=== PATIENT | male | born 1965 | race African-American/Black ===

== ENCOUNTER 2020-06-12 14:59 | Emergency (ER) | payer OTHER ==
[2020-06-12 15:33] VITALS: BP 165/97; PULSE 104; TEMP 98.8; BMI 41.0
== END 2020-06-12 15:56 | disposition home or self-care (01) ==
LOC: FER 14:59
DX: S09.90XA Unspecified injury of head, initial encounter (principal)
CPT/HCPCS: 99283-25

== ENCOUNTER 2022-05-29 09:25 | Emergency (ER) | payer BC, OTHER ==
[2022-05-29 09:30] VITALS: RESP 18; TEMP 98.7; BMI 41.0
[2022-05-29] MEDS ORDERED: ACETAMINOPHEN 500 MG TABLET (FP) PO ONE (09:50)
[2022-05-29] MEDS ORDERED: ACETAMINOPHEN 500 MG TABLET (FP) ONE (10:06)
[2022-05-29] MEDS ORDERED: IBUPROFEN 600 MG TABLET (FP) PO ONE ×2 (10:26→10:29)
[2022-05-29 11:24] VITALS: BP 150/89; PULSE 77
== END 2022-05-29 11:00 | disposition home or self-care (01) ==
LOC: FER 09:25
DX: G56.01 Carpal tunnel syndrome, right upper limb (principal); I10 Essential (primary) hypertension
CPT/HCPCS: 70450-TC; 93005; 99284-25

== ENCOUNTER 2023-10-19 09:19 | Emergency (ER) | payer BC, OTHER ==
[2023-10-19 09:24] VITALS: BP 119/82; PULSE 61; RESP 18; TEMP 97.5; BMI 38.0
[2023-10-19] MEDS: SODIUM CHLORIDE 0.9% 500 ML INFUS.BAG IV ONE (10:00)
[2023-10-19] MEDS: ONDANSETRON 4 MG/2 ML VIAL IVPUSH ONE (10:00)
[2023-10-19] MEDS ORDERED: ONDANSETRON 4 MG/2 ML VIAL ONE (10:00)
[2023-10-19 10:15] LABS: HEMATOCRIT 45.7 % (35.4-49); HEMOGLOBIN 14.8 G/dL (11.7-16.9); MCH 27.2 pg (25.7-33.7); MCHC 32.3 g/dl (32.0-35.9); PLATELET COUNT 248.2 10^3/uL (134-434); RBC 5.44 10^6/uL (4.00-5.60); RDW 15.1 % (11.9-15.9); WHITE BLOOD COUNT 7.5 10^3/uL (4.0-10.8)
[2023-10-19 10:40] LABS: ALBUMIN 4.5 g/dl (3.4-5.0); ALK PHOS 84 U/L (45-117); ANION GAP 7 mmol/L (4-13); BILIRUBIN,TOTAL 1.2 mg/dl (0.2-1); CALCIUM 9.5 mg/dl (8.5-10.1); CHLORIDE 104 mmol/L (98-107); CO2 29 mmol/L (21-32); GLUCOSE,RANDOM 120 mg/dl (74-106); MAGNESIUM 2.1 mg/dL (1.8-2.4); SGOT/AST 22 U/L (15-37); SGPT/ALT 25 U/L (7-52); SODIUM 140 mmol/L (136-145); TOT PROT 6.6 g/dl (6.4-8.2)
[2023-10-19 10:48] LABS: PLATELET ESTIMATE ADEQUATE
== END 2023-10-19 11:55 | disposition home or self-care (01) ==
LOC: FER 09:19
PROC: 3E033GC Introduction of Other Therapeutic Substance into Peripheral Vein, Percutaneous Approach (ICD-10-PCS; principal; 2023-10-19)
DX: R11.0 Nausea (principal); R61 Generalized hyperhidrosis
CPT/HCPCS: 36415; 71045-TC-FY; 80053; 83735; 84484; 85027; 93005; 99285-25